=== PATIENT | female | born 1945 | race Caucasian/White ===

== ENCOUNTER 2025-01-20 09:48 | Outpatient (AMB) | payer MEDICARE, SELFPAY ==
--- NOTE | 2025-01-20 09:50 | MHC.PC.OV ---
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 Intake Note: patient here for new patient visit and med review Transition Program Manager Required: No Is last menstrual period known: No Post menopausal: No Patient : No Allergies No Known Allergies Allergy (Verified 01/20/25 09:56) Medication List - Last Reconciled 01/20/25 by Miguel Ángel Rivera MD apixaban (Eliquis) 5 mg PO BID atorvastatin (Lipitor) 20 mg PO DAILY bethanechol chloride 25 mg PO TID doxazosin (Cardura) 2 mg PO BEDTIME duloxetine 30 mg PO BID gabapentin 600 mg PO TID levetiracetam 750 mg PO BID sennosides (Natural Senna Laxative) 8.6 mg PO BID Tobacco use date assessed: 01/20/25 Fall risk assessment: No Falls in past year Last assessed Fall Risk: 01/20/25 Dental Screening Dental Screen Date: 01/20/25 Did you have a dental visit in the last 12 months?: No Did you have a dental problem in the last 6 months where you did not have access to dental care?: No Was dental information given to patient?: No HPI PRODUCT DESIGN MANAGER // Med Review HPI Details New Patient? ?? Prior PCP:? [facility] Dr Lopez Last office visit/CPE:?1 year Acute issue(s):? Leg swelling x a couple months ?? PMHx:? 03/2021 CVA & Seizure Dr Lucas [facility], Pulmonary Emboli Dr Marrero and uses QVAR. SurgHx:? None SocHx: Nonsmoker. EtOH None. No drugs HPI Comments History of Present Illness Details Documentation assistance for Miguel Ángel Rivera MD, was provided by Ham Muñoz,Makenzie Cardiac Monitor on 01/20/2025 at 10:24 AM EST. Brown, Dr. Rivera, have read, observed, and verified documentation. [facility] Medical History (Updated 01/20/25 @ 10:56 by Miguel Ángel Rivera MD) Epileptic seizures Stroke (cerebrum) High cholesterol High blood pressure Family History (Updated 01/20/25 @ 10:16 by Denice Sarkar MA) Mother FH: mental illness High blood pressure Dementia Father Diabetes Social History (Updated 01/20/25 @ 09:58 by Denice Sarkar MA) Housing: House Patient Tobacco Use Status: Never used Tobacco e-Cigarette/Vaping Use: Never Used Second Hand Smoke Exposure: No service: No Current occupational status: disabled Current occupational exposures/hazards: No Cognitive needs: Yes (wheel chair) Hearing needs: No Vision needs: No Questionnaire PHQ-9 Over the last 2 weeks, how often have you been bothered by any of the following problems? 1. Little interest or pleasure in doing things: not at all 2. Feeling down, depressed, or hopeless: not at all 3. Trouble falling or staying asleep, or sleeping too much: not at all 4. Feeling tired or having little energy: not at all 5. Poor appetite or overeating: not at all 6. Feeling bad about yourself - or that you are a failure or have let yourself or your family down: not at all 7. Trouble concentrating on things, such as reading the newspaper or watching television: not at all 8. Moving or speaking so slowly that other people could have noticed. Or the opposite - being so fidgety or restless that you have been moving around a lot more than usual: not at all 9. Thoughts that you would be better off or of hurting yourself in some way: not at all Total score: 0 Depression Screening Interpretation: Negative Depression Screening Done: Yes 47209 - PHQ-9 Billing: Yes Source: Developed by Drs. Ildefonso Vickers, Sandra Alas, Donato Waddell and colleagues, with an educational sis from [employer]. Thrive Questionnaire Date Thrive assessed: 01/20/25 I am a: Patient What is your living situation today?: I have a steady place to live Within the past 12 months, did the food you bought not last and you didn't have the money to get more?: Never true Within the past 12 months, did you worry whether your food would run out before you got money to buy more?: Never true Do you have trouble paying for medicines?: No Do you have trouble getting transportation to medical appointments?: No Do you have trouble paying your heating and electricity bill?: No Do you have trouble taking care of your child, family member or friend?: I choose not to answer this question Do you have trouble with day-to-day activities such as bathing, preparing meals, shopping, managing finances, etc.?: Yes Are you currently unemployed and looking for a job?: No Are you interested in more education?: No Please select the resources that you would like help with: None Currently or been in a relationship where the following occur: No concerns reported THRIVE Score: 0 AUDIT C Alcohol Use Questionnaire (AUDIT-C) 1. How often do you have a drink containing alcohol?: Never 3. How often do you have six or more drinks on one occasion?: Never Total Score: 0 Score Reviewed/Action Taken: Yes EDMOND-7 AMB Questionnaire EDMOND-7 Date EDMOND - 7 assessed: 01/20/25 Feeling nervous, anxious, or on edge: 0 = Not at all Not being able to stop or control worryin = Not at all Worrying too much about different things: 0 = Not at all Trouble relaxin = Not at all Being so restless that it is hard to sit still: 0 = Not at all Becoming easily annoyed or irritable: 0 = Not at all Feeling afraid as if something awful might happen: 0 = Not at all Total EDMOND-7 score (0-4 normal; 5-9 mild; 10-14 moderate; 15-21 severe): 0 Source: Developed by Drs. Ildefonso Vickers, Sandra Alas, Donato Waddell and colleagues, with an educational sis from [employer]. EDMOND-7 Assessment Billing EDMOND-7 Assessment Tool: EDMOND-7 Assessment 64106 Review of Systems Const Denies chills, Denies fatigue, Denies fever(s), Denies headache(s) and Denies weakness ENT Denies dizziness and Denies headache(s) Card Denies chest pain, Denies lightheadedness, Denies dyspnea and Denies other (Palpitations) Resp Denies cough, Denies dyspnea, Denies wheezing and Denies other ( shortness of breath) Musc Denies numbness and Denies tingling Neuro Denies dizziness, Denies headache(s), Denies numbness, Denies tingling, Denies paresthesias and Denies weakness Psych Denies anxiety and Denies depression Endo Denies fatigue Aller/Immun Denies wheezing Physical exam (Primary Care) Vital Signs: Last Vital Signs Temp 98 F 01/20/25 09:59 Pulse 82 01/20/25 09:59 Resp 16 01/20/25 09:59 BP 113/57 L 01/20/25 09:59 Pulse Ox 96 01/20/25 09:59 Oxygen Delivery Method Room Air 01/20/25 09:59 Tobacco/Smoking Status: Tobacco use Status Tobacco use date assessed 01/20/25 01/20/25 09:59 Patient Tobacco Use Status Never used Tobacco 01/20/25 09:59 e-Cigarette/Vaping Use Never Used 01/20/25 09:59 PHQ-9: PHQ-9 Score PHQ-9: Total score 0 01/20/25 10:25 Depression Screening Interpretation: Negative Thrive Assessment: Date of Thrive Assessment Date Thrive assessed 01/20/25 01/20/25 09:54 Currently or been in a relationship where the following occur: No concerns reported Const General: no acute distress and well developed Nutritional Appearance: well nourished Orientation/consciousness: patient oriented x3 HENMT Head: Yes normocephalic and Yes atraumatic Eyes General: appearance normal, both eyes and all related structures Pupils: Equal, round and reactive pupils present EOM: EOMs intact bilaterally Resp Effort & Inspection: normal respiratory effort Auscultation: clear to auscultation bilaterally Cardio Rate: regular rate Rhythm: regular rhythm Heart sounds: S1 normal heart sound present, S2 normal heart sound present, no gallops, no murmurs and no rubs Neuro General: patient oriented x3 and gait normal Cranial nerves: Yes Equal, round and reactive pupils present Extrem Other: 3+ lower extremity edema, bilateral Psych Affect: normal affect Coding Level of Care Code New Pt Level 4 (64730) Diagnoses Swelling of lower extremity M79.89 Venous insufficiency I87.2 History of pulmonary embolism Z86.711 History of CVA (cerebrovascular accident) Z86.73 Lower extremity weakness R29.898 Laboratory exam ordered as part of routine general medical examination Z00.00 Additional Codes EDMOND-7 Assessment Billing - EDMOND-7 Assessment Tool: EDMOND-7 Assessment 80488 ([id number]) PHQ-9 - 39770 - PHQ-9 Billing: Yes ([id number]) Assessment & Plan Assessment & Plan (1) Swelling of lower extremity: Code(s): M79.89 - Other specified soft tissue disorders Category: Medical Plan: Lower extremity edema bilaterally. Worse towards evening and better in mornings. No orthopnea Likely venous insufficiency Elevate legs Avoid salt/sodium Use compression stocking Will give her a script for furosemide (2) Venous insufficiency: Code(s): I87.2 - Venous insufficiency (chronic) (peripheral) Category: Medical Plan: As above, (3) History of pulmonary embolism: Code(s): Z86.711 - Personal history of pulmonary embolism Category: Medical Plan: This occurred after her stroke Unclear what underlying cause was but she is now on Eliquis Requesting prior records. Continue Eliquis (4) History of CVA (cerebrovascular accident): Code(s): Z86.73 - Personal history of transient ischemic attack (TIA), and cerebral infarction without residual deficits Category: Medical Plan: History of CVA. Unclear what underlying cause was. Requesting records from her neurologist, Dr. Lucas Continue Eliquis and atorvastatin Continue levetiracetam Follow-up with Neurology as recommended (5) Lower extremity weakness: Code(s): R29.898 - Other symptoms and signs involving the musculoskeletal system Category: Medical Plan: Patient has lower extremity weakness bilaterally though she had a stroke with left-sided weakness. Appears to have deconditioning Start physical therapy (6) Laboratory exam ordered as part of routine general medical examination: Code(s): Z00.00 - Encounter for general adult medical examination without abnormal findings Category: Medical Plan: Check labs Orders: Orders Microalbumin, Random (w Creat) Today I10 - Essential (primary) hypertension Vitamin B12 and Folate Today E53.8 - Deficiency of other specified B group vitamins Comprehensive [place]. Panel Fast Today Z00.00 - Encounter for general adult medical examination without abnormal findings Complete Blood Count Auto Diff Today Z00.00 - Encounter for general adult medical examination without abnormal findings Lipid Panel Today Z00.00 - Encounter for general adult medical examination without abnormal findings TSH reflex Free T4 Today Z00.00 - Encounter for general adult medical examination without abnormal findings UA CC w/rflx Micro + Cult Today Z00.00 - Encounter for general adult medical examination without abnormal findings Vitamin D 25-OH Total Today E55.9 - Vitamin D deficiency, unspecified Referrals [facility] Referral R29.898 - Other symptoms and signs involving the musculoskeletal system, Z86.73 - Personal history of transient ischemic attack (TIA), and cerebral infarction without residual deficits Medications: New compr.stocking,knee,long,large 30-40mmHg. Daily As directed, 90 days 12 ea 3RF I87.2 - Venous insufficiency (chronic) (peripheral) furosemide 10 mg (1/2 x 20 mg) PO QAM 15 tabs 3RF 30 days
[2025-01-20 09:59] VITALS: BP 113/57; PULSE 82; RESP 16; TEMP 36.6; O2SAT 96
--- OUTSIDE RECORDS SUMMARY | 2025-01-20 10:23 | XMS_ITS | Clinical Summary ---
Author Organization [facility] Address [address] [place] [address] Care Team Providers Care Vacuum Spindle Sander Name Role Phone Unavailable Primary Care Provider Unavailabl e Allergies No known active allergies Medications Medication Sig Dispensed Refills Start Date End Date Status Eliquis 5 MG TABS tablet Take 5 mg by mouth 2 (two) times a day. 0 08/13/2021 Active atorvastatin (LIPITOR) tablet 20 mg Take 20 mg by mouth. 0 07/17/2021 Active baclofen (LIORESAL) 10 MG tablet Take 10 mg by mouth 3 (three) times a day. 0 08/11/2021 Active bethanechol (URECHOLINE) 25 MG tablet Take 25 mg by mouth 3 (three) times a day. 0 08/14/2021 Active Diclofenac Sodium 1 % GEL APPLY 4 GRAMS TWICE DAILY NEEDED FOR PAIN 0 08/11/2021 Active docusate sodium (COLACE) 100 MG capsule Take 100 mg by mouth 2 (two) times a day. 0 08/07/2021 Active gabapentin (NEURONTIN) 600 MG tablet Take 600 mg by mouth 3 (three) times a day. 0 08/18/2021 Active Stool Softener Plus Laxative 8.6-50 MG Take 1 tablet by mouth 2 (two) times a day. 0 08/08/2021 Active Active Problems Problem Noted Date Diagnosed Date Acute pulmonary embolism 09/04/2021 Overview: CT angio head, performed on 04/04, for hyperacute stroke, showed multiple bilateral pulmonary emboli, with large emboli extending from right main, and left lower Cerebrovascular accident (CV A) due to thrombosis of right anterior cerebral artery 09/04/2021 Essential hypertension 09/04/2021 Encephalomalacia 09/04/2021 Seizure 09/04/2021 Family History Medical History Relation Name Comments Diabetes Father Cancer Paternal Aunt Cancer Sister Relation Name Status Comments Father Paternal Aunt Sister Social History Tobacco Use Types Packs/Day Years Used Date Smoking Tobacco: Never Smokeless Tobacco: Never Alcohol Use Standard Drinks/Week Comments Never 0 (1 standard drink = 0.6 oz pur e alcohol) Sex and Gender Information Value Date Recorded Sex Assigned at Not on file Gender Identity Not on file Sexual Orientation Not on file Job Start Date Occupation Industry Not on file Not on file Not on file Last Filed Vital Signs Vital Sign Reading Time Taken Comments Blood Pressure 134/52 09/04/2021 11:48 AM EST Pulse 72 09/04/2021 11:48 AM EST Temperature 37.1 C (98.7 F) 09/04/2021 11:48 AM EST Respiratory Rate - - Oxygen Saturation 98% 09/04/2021 11:48 AM EST Inhaled Oxygen Concentration - - Weight 68 kg (150 lb) 09/04/2021 11:48 AM EST Height - - Body Mass Index - - Plan of Treatment Health Maintenance Due Date Last Done Comments Depression Screening 1956 Preventative Health Evaluation 1962 DTap / Tdap / Td (1 - Tdap) 1963 Shingrix-Zoster Vaccine (1 o f 2) 1994 Fall Risk Assessment 2009 Osteoporosis Screening (DEXA Scan) 2009 RSV Adult > 60+ Yrs or (1 - 1-dose 75+ series) 2019 Pneumococcal Vaccine (2 of 2 - PPSV23 or PCV20) 08/11/2022 08/11/2021 COVID-19 Vaccine (4 - 2023-2 5 season) 2024 07/05/2021, 10/01/2020, 09/04/2020 Influenza Vaccine (#1) 2025 Hepatitis B Vaccines Aged Out No long er eligible based on patient's age to complete this topic RSV Ped < 20 months Aged Out No longe r eligible based on patient's age to complete this topic
--- OUTSIDE RECORDS SUMMARY | 2025-01-20 10:23 | XMS_ITS | Clinical Summary ---
Author Organization [facility] [address] [facility] [address] Address [address] [place] [address] Phone Care Team Providers Care Firefighting Equipment Specialist Name Role Phone Miguel Ángel Rivera MD Primary Care Provider Medications gabapentin (NEURONTIN) 600 mg tablet TAKE 1/2 TABLET BY MOUTH IN THE MORNING, 1/2 TABLET BY MOUTH IN THE AFTERNOON, AND TAKE 2 TABLETS BEFORE AT BEDTIME 360 tablet 1 07/02/2024 Active bethanechol (URECHOLINE) 25 mg tablet Take 1 tablet (25 mg total) by mouth 3 (three) times a day. 270 tablet 2 07/29/2024 Active Eliquis 5 mg tablet TAKE ONE TABLET BY MOUTH TWICE A DAY 180 tablet 1 09/09/2024 Active doxazosin (CARDURA) 2 mg tablet TAKE ONE TABLET BY MOUTH DAILY AT BEDTIME 90 tablet 10/09/2024 Active atorvastatin (LIPITOR) 20 mg tablet Take 1 tablet (20 mg total) by mouth 1 (one) time each day. 90 tablet 10/09/2024 Active Senna Plus 8.6-50 mg per tablet TAKE ONE TABLET BY MOUTH TWICE A DAY 180 tablet 11/09/2024 Active DULoxetine (CYMBALTA) [address] capsule TAKE ONE CAPSULE BY MOUTH TWICE A DAY 180 capsule 11/26/2024 Active Immunizations Name Administration Dates Next Due [facility] SARS-CoV-2 COVID-19, mRNA, LNP-S, preservative free 10/01/2020,09/04/2020 Surgical History Surgery Date Site/Laterality Comments APPENDECTOMY PROCEDURE: [place] APPENDECTOMY Medical History Medical History Date Comments New onset seizure (CMS/HCC V 24, CMS/HCC V28) 09/15/2021 DX:New onset seizure (HCC); COMMENT: Admitted in hospital on 08/17/2021 with generalized tonic-clonic seizure for approx 20 seconds associated with fecal incontinence Hyperlipidemia DX:Hyperlipidemi a Essential hypertension DX:Essent ial hypertension Cerebrovascular disease DX:Cereb rovascular disease Family History Medical History Relation Name Comments Diabetes Father Alzheimer's disease Mother Relation Name Status Comments Father Other Mother Social History Tobacco Use Types Packs/Day Years Used Date Smoking Tobacco: Never Smokeless Tobacco: Never Alcohol Use Standard Drinks/Week Comments Never 0 (1 standard drink = 0.6 oz pur e alcohol) Comments Unknown Sex and Gender Information Value Date Recorded Sex Assigned at Female 06/30/2024 8:38 AM EST Legal Sex Female 2:37 PM EST Gender Identity Female 06/30/2024 8:38 AM EST Sexual Orientation Not on file Obstetrics History Last Filed Vital Signs Vital Sign Reading Time Taken Comments Blood Pressure 102/68 12/23/2023 10:25 AM EDT Pulse 82 12/23/2023 10:25 AM EDT Temperature - - Respiratory Rate - - Oxygen Saturation - - Inhaled Oxygen Concentration - - Weight 99.8 kg (220 lb) 12/23/2023 10:25 AM EDT Height 152.4 cm (5') 12/23/2023 10:25 AM EDT Body Mass Index 42.97 12/23/2023 10:25 AM EDT Plan of Treatment Health Maintenance Due Date Last Done Comments DTaP,Tdap,and Td Vaccines (1 - Tdap) 1963 Zoster Vaccines (1 of 2) 1994 RSV Immunization Adult Patients (1 - 1-dose 75+ series) 2019 Cholesterol Screening (Lipid Panel) 06/21/2022 Depression Screening 06/21/2022 Falls Risk Assessment 06/21/2022 Osteoporosis Screening (Bone Density Screening) 06/21/2022 Social Influencers of Health Screening 06/21/2022 COVID-19 Vaccine (4 - 2023-2 5 season) 2024 07/05/2021, 10/01/2020, 09/04/2020 Hypertension/CHF/CAD Annual BMP Blood Test 12/22/2024 12/23/2023 Influenza Vaccine (#1) 2025 04/11/2023 Pneumococcal Vaccine: 50+ Years Completed 04/11/2023, 08/11/2021 HIB Vaccines Aged Out No longer eligi ble based on patient's age to complete this topic HPV Vaccines Aged Out No longer eligi ble based on patient's age to complete this topic Hepatitis A Vaccines Aged Out No long er eligible based on patient's age to complete this topic Hepatitis B Vaccines Aged Out No long er eligible based on patient's age to complete this topic IPV Vaccines Aged Out No longer eligi ble based on patient's age to complete this topic MMR Vaccines Aged Out No longer eligi ble based on patient's age to complete this topic Meningococcal ACWY Vaccine Aged Out N o longer eligible based on patient's age to complete this topic Meningococcal B Vaccine Aged Out No l onger eligible based on patient's age to complete this topic RSV Immunization Patients Under 20 months Aged Out No longer eligible b ased on patient's age to complete this topic Varicella Vaccines Aged Out No longer eligible based on patient's age to complete this topic Care Teams Firefighting Equipment Specialist Relationship Specialty Start Date End Date Miguel Ángel Rivera MD [address] [place] [address] PCP - General Family Medicine 11/24/24
== END 2025-01-20 11:00 | disposition home or self-care (01) ==
LOC: HO.HMCFM 09:49
PROVIDERS: PCP Family Medicine; Visit Provider Family Medicine
DX: M79.89 Other specified soft tissue disorders (principal); I87.2 Venous insufficiency (chronic) (peripheral); Z86.711 Personal history of pulmonary embolism; Z86.73 Personal history of transient ischemic attack (TIA), and cerebral infarction without residual deficits; R29.898 Other symptoms and signs involving the musculoskeletal system; Z00.00 Encounter for general adult medical examination without abnormal findings

== ENCOUNTER → 2025-01-20 09:48 | Outpatient (BNVA) | payer MEDICARE, SELFPAY | PROVIDERS: PCP Family Medicine; Visit Provider Family Medicine | DX: Z76.89 Persons encountering health services in other specified circumstances (principal); M79.89 Other specified soft tissue disorders; I87.2 Venous insufficiency (chronic) (peripheral); R29.898 Other symptoms and signs involving the musculoskeletal system; Z86.73 Personal history of transient ischemic attack (TIA), and cerebral infarction without residual deficits; Z86.711 Personal history of pulmonary embolism; Z13.31 Encounter for screening for depression; Z13.30 Encounter for screening examination for mental health and behavioral disorders, unspecified | CPT/HCPCS: 96127; 99202 ==

== ENCOUNTER 2025-01-20 11:06 | Outpatient (REF) | payer MEDICARE, SELFPAY ==
[2025-01-20 14:38] LABS: MANUAL DIFF FLAG NO
[2025-01-20 14:39] LABS: Hematocrit 43.6 % (37.0-47.0); Hemoglobin 14.4 g/dl (12.0-16.0); Imm Gran Abs Auto 0.01 X10*3/uL (0.00-0.03); Imm Gran Pct Auto 0.2 % (0.0-0.4); Lymphocytes Absolute Auto 1.5 X10*3/uL (1.2-4.9); Mean Corpuscular HGB Conc 33.0 g/dl (31.0-35.0); Mean Corpuscular Hemoglobin 31.0 pg (27.0-33.0); Mean Corpuscular Volume 93.8 fL (80.0-98.0); NRBC Abs Auto 0.000 X10*3/uL (0.0-0.012); NRBC Pct Auto 0.0 /100WBC (0.0-0.2); Platelet Count 186 X10*3/uL (160-400); Red Blood Count 4.65 X10*6/uL (4.20-5.50); White Blood Count 4.7 X10*3/uL (4.8-10.8)
[2025-01-20 15:16] LABS: Alanine Aminotransferase 48 U/L (0-31); Albumin Level 4.3 g/dL (3.5-5.0); Alkaline Phosphatase 60 U/L (39-117); Anion Gap 13 (12-20); Aspartate Amino Transferase 48 U/L (5-31); Blood Urea Nitrogen 15 mg/dL (9-16); Calcium 9.1 mg/dL (8.4-10.2); Carbon Dioxide 26 mmol/L (22-29); Chloride 108 mmol/L (96-108); Cholesterol 165 mg/dL (<200); Estimated Glomerular Filt Rate > 60; HDL Cholesterol 52 mg/dL (>40); Potassium 3.9 mmol/L (3.3-5.1); Sodium 143 mmol/L (135-145); Total Protein 6.9 g/dL (6.5-8.0); Triglycerides 78 mg/dL (<150)
[2025-01-20 15:30] LABS: Folate 10.5 ng/mL (> or = 4.0); Vitamin B12 275 pg/mL (200-900)
== END 2025-01-20 11:07 | disposition home or self-care (01) ==
LOC: HO.WFDLDS 11:06
PROVIDERS: Visit Provider Family Medicine
DX: Z00.00 Encounter for general adult medical examination without abnormal findings (principal); E53.8 Deficiency of other specified B group vitamins; E55.9 Vitamin D deficiency, unspecified; I10 Essential (primary) hypertension
CPT/HCPCS: 36415; 80053; 80061; 82306; 82607; 82746; 84443; 85025

== ENCOUNTER 2025-04-26 11:58 | Outpatient (AMB) | payer MEDICARE, SELFPAY ==
--- OUTSIDE RECORDS SUMMARY | 2025-04-26 12:01 | XMS_ITS | Clinical Summary ---
Author Organization [facility] Address [address] [place] [address] Care Team Providers Care Quality Assurance Director Name Role Phone Unavailable Primary Care Provider [...] PPSV23 or PCV20) 08/11/2022 08/11/2021 COVID-19 Vaccine ( - 2024-2 6 season) 2025 07/05/2021, 10/01/2020, 09/04/2020 Influenza Vaccine (#1) 2025 Hepatitis B Vaccines Aged Out No long er eligible based on patient's age to complete this topic RSV Ped < 20 months Aged Out No longe r eligible based on patient's age to complete this topic
--- OUTSIDE RECORDS SUMMARY | 2025-04-26 12:01 | XMS_ITS | Clinical Summary ---
Author Organization [facility] [address] [facility] [address] Address [address] [place] [address] Phone Care Team Providers Care Video Tape Duplicator Name Role Phone Miguel Ángel Rivera MD [...] A DAY 180 capsule 11/26/2024 Active Immunizations Immunization Administration Dates Next Due [facility] SARS-CoV-2 COVID-19, mRNA, LNP-S, preservative free 10/01/2020,09/04/2020 Surgical History Surgery Date Site/Laterality Comments APPENDECTOMY PROCEDURE: [place] APPENDECTOMY Medical History Medical History Date Comments [...] series) 2019 Cholesterol Screening (Lipid Panel) 06/21/2022 Falls Risk Assessment 06/21/2022 Osteoporosis Screening (Bone Density Screening) 06/21/2022 Social Influencers of Health Screening 06/21/2022 Depression Screening 07/15/2024 Hypertension/CHF/CAD Annual BMP Blood Test 12/22/2024 12/23/2023 COVID-19 Vaccine (2024-2 6 season) 2025 07/05/2021, 10/01/2020, 09/04/2020 Influenza Vaccine (#1) 2025 04/11/2023 Pneumococcal Vaccine: [...] age to complete this topic Care Teams Video Tape Duplicator Relationship Specialty Start Date End Date Miguel Ángel Rivera MD PCP - General Family Medicine 11/24/24
--- NOTE | 2025-04-26 12:03 | A.OFFPC_ITS ---
Vital Signs 04/26/25 12:09 Height 5 ft 2 in BMI Reason not done Patient refused/unable BP 116/68 Blood Pressure Location Rt brachial Position Sitting Respiration 16 Pulse 85 Pulse Source Pulse Oximeter Temp 97.4 F Temp Source Temporal Artery Scan Pulse Oximetry (%) 94 Oxygen Delivery Method Room Air Intake Visit Reasons: CPE with f/u labs and health maint. 30 mins Intake Note: Saida presents in the office today for her annual physical and a follow up to her labs. Allergies No Known Allergies Allergy (Verified 04/26/25 12:06) Medication List - Last Reconciled 04/26/25 by Miguel Ángel Rivera MD albuterol sulfate 90 mcg/actuation (Ventolin HFA) 2 puffs inhalation Q6H PRN apixaban (Eliquis) 5 mg PO BID 90 days atorvastatin (Lipitor) 20 mg PO DAILY 90 days beclomethasone dipropionate 40 mcg/actuation (Qvar RediHaler) 2 inhalations inhalation BID bethanechol chloride 25 mg PO TID 90 days cholecalciferol (vitamin D3) 50 mcg PO DAILY 30 days compr.stocking,knee,long,large 30-40mmHg. Daily As directed, 90 days doxazosin (Cardura) 2 mg PO BEDTIME 90 days duloxetine 30 mg PO BID 90 days furosemide 10 mg (1/2 x 20 mg) PO QAM 30 days gabapentin 600 mg PO TID 90 days levetiracetam 750 mg PO BID 90 days sennosides (Natural Senna Laxative) 8.6 mg PO BID 90 days Tobacco use date assessed: 04/26/25 Dental Screening Dental Screen Date: 04/26/25 Did you have a dental visit in the last 12 months?: No Did you have a dental problem in the last 6 months where you did not have access to dental care?: No Was dental information given to patient?: Patient declined HPI CPE with f/u labs and health maint. 30 mins HPI Details 79 y/o female presents for an extended e xam with f/u labs and health maint. Labs drawn 01/20/25. Reviewed labs with pt. Elevated liver enzymes - AST 48, ALT 48. Triglycerides 78. TC 165. LDL 98. HDL 52. She is on artovastatin 20mg. Vitamin D low at 9.7 ng/mL. Fasting glucose of 106. A1c today 6.2%. Pt notes ongoing LE swelling. Continues to take her furosemide. BP today 116/68, 85p. They note some objective, decreased hearing. 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 [facility] Medical History (Updated 04/26/25 @ 13:36 by Ham Muñoz) Epileptic seizures Stroke (cerebrum) High cholesterol High blood pressure Family History Mother FH: mental illness High blood pressure Dementia Father Diabetes Social History (Updated 04/26/25 @ 12:09 by Jacquie Gordon CMA) Housing: House Alcohol intake: never Patient Tobacco Use Status: Never used Tobacco e-Cigarette/Vaping Use: Never Used Second Hand Smoke Exposure: No service: No Current occupational status: disabled Current occupational exposures/hazards: No Cognitive needs: Yes (wheel chair) Hearing needs: No Vision needs: No Questionnaire Thrive Questionnaire Date Thrive assessed: 01/15/25 I am a: Patient What is your living situation today?: I have a steady place to live Within the past 12 months, did the food you bought not last and you didn't have the money to get more?: Never true Within the past 12 months, did you worry whether your food would run out before you got money to buy more?: Never true Do you have trouble paying for medicines?: No Do you have trouble getting transportation to medical appointments?: No Do you have trouble paying your heating and electricity bill?: No Do you have trouble taking care of your child, family member or friend?: I choose not to answer this question Do you have trouble with day-to-day activities such as bathing, preparing meals, shopping, managing finances, etc.?: Yes Are you currently unemployed and looking for a job?: No Are you interested in more education?: No Please select the resources that you would like help with: None Currently or been in a relationship where the following occur: No concerns reported THRIVE Score: 0 AUDIT C Alcohol Use Questionnaire (AUDIT-C) 3. How often do you have six or more drinks on one occasion?: Never Total Score: 0 EDMOND-7 AMB Questionnaire EDMOND-7 Date EDMOND - 7 assessed: 01/20/25 Source: Developed by Drs. Ildefonso LSandra Hardy, Donato Waddell and colleagues, with an educational sis from [employer]. Review of Systems Const Denies chills, Denies fatigue, Denies fever(s), Denies headache(s) and Denies weakness Eyes Denies change in vision ENT Denies dizziness, Denies headache(s), Denies hearing loss, Denies nasal congestion, Denies sinus pain, Denies sinus pressure and Denies sore throat Card Denies chest pain, Denies lightheadedness, Denies dyspnea and Denies other (palpitations) Resp Denies cough, Denies dyspnea and Denies wheezing GI Denies abdominal pain, Denies melena, Denies hematochezia, Denies change in bowel habits, Denies dyspepsia and Denies nausea Denies hematuria and Denies dysuria Musc Denies abnormal gait, Denies myalgias, Denies arthralgias, Denies numbness and Denies tingling Skin/Breast Denies rash, Denies unusual bruising and Denies wounds Neuro Denies abnormal gait, Denies dizziness, Denies headache(s), Denies memory loss, Denies numbness, Denies Sensory deficit (Neuro), Denies tingling and Denies weakness Psych Denies anxiety, Denies depression and Denies memory loss Endo Denies cold intolerance, Denies fatigue, Denies heat intolerance, Denies polydipsia and Denies polyuria Clarence/Lymph Denies easy bleeding and Denies easy bruising Aller/Immun Denies wheezing Physical exam (Primary Care) Vital Signs: Last Vital Signs Temp 97.4 F 04/26/25 12:09 Pulse 85 04/26/25 12:09 Resp 16 04/26/25 12:09 BP 116/68 04/26/25 12:09 Pulse Ox 94 04/26/25 12:09 Oxygen Delivery Method Room Air 04/26/25 12:09 Tobacco/Smoking Status: Tobacco use Status Tobacco use date assessed 04/26/25 04/26/25 12:13 Patient Tobacco Use Status Never used Tobacco 04/26/25 12:09 e-Cigarette/Vaping Use Never Used 04/26/25 12:09 Thrive Assessment: Date of Thrive Assessment Date Thrive assessed 01/15/25 04/26/25 12:04 Currently or been in a relationship where the following occur: No concerns reported Const General: no acute distress, well developed, alert and awake Nutritional Appearance: well nourished Orientation/consciousness: patient oriented x3 [facility] Head: Yes normocephalic and Yes atraumatic Ears: hearing grossly normal bilaterally and TM's normal bilaterally General nose exam: Normal external nose present and Normal nares present Mouth: Normal oral and palatal mucosa present and moist mucous membranes Teeth and gingiva: dentition normal Throat: Yes posterior oropharynx normal Eyes General: appearance normal, both eyes and all related structures Pupils: Equal, round and reactive pupils present and Pupil accommodation reflex normal EOM: EOMs intact bilaterally Neck Neck: Yes normal visual inspection, Yes no lymphadenopathy and Yes trachea midline Thyroid: Thyroid normal Carotids: no bruits Lymphatic: no lymphadenopathy noted Chest Chest palpation & inspection: normal inspection of the chest Resp Other: Dry crackles Effort & Inspection: normal respiratory effort Auscultation: clear to auscultation bilaterally Cardio Rate: regular rate Rhythm: regular rhythm Heart sounds: S1 normal heart sound present, S2 normal heart sound present, no gallops, no murmurs and no rubs Bruits: no abdominal aortic bruits and no carotid bruits GI Palpation (GI): No Abdominal aortic bruit present, Soft to palpation, nontender, No hepatosplenomegaly present and No Rebound tenderness present Auscultation: normal bowel sounds General: Yes no CVA tenderness Back/Spine/Pelvis Back: no CVA tenderness Cervical Spine: cervical ROM normal and No Cervical spine tenderness Thoracic/Lumbar Spine: thoraco-lumbar ROM normal, No pain with thoraco-lumbar ROM, No thoracic spinal tenderness and No lumbar spinal tenderness Skin Lesions: no lesions Rashes: no rashes Trauma: no lacerations or abrasions Wounds: no wounds Nails: normal Neuro General: patient oriented x3 and No gait normal Cranial nerves: Yes Equal, round and reactive pupils present Cognition (Neuro): normal cognition Gait exam (Neuro): Normal gait present Motor exam (neuro): 5/5 motor strength present throughout Sensory Exam: No Sensory deficit (Neuro) Deep tendon reflexes (DTR's): Right patellar reflex intensity grade: 2+ and Left patellar reflex intensity grade: 2+ Extrem General: Yes normal to inspection and No edema Psych Appearance: grossly normal Affect: normal affect Attitude: cooperative Thought process: Normal thought process present Results AMB Hemoglobin A1c AMB Hemoglobin A1c 6.2 % Last Edit by Jacquie Gordon CMA on 04/26/25 13:18 Results Reviewed Results Reviewed: Laboratory Last Values Hgb A1c (Clinic) 6.2 % (4.0-6.0) H 04/26/25 13:11 Coding Level of Care Code Est Pt Level 4 (79269) Diagnoses Decreased hearing H91.90 Cellulitis of skin L03.90 Pre-diabetes R73.03 High blood pressure I10 Left-sided weakness R53.1 Hyperlipidemia E78.5 Elevated liver enzymes R74.8 History of CVA (cerebrovascular accident) Z86.73 Screening for osteoporosis Z13.820 Vitamin D deficiency E55.9 Immunization counseling Z71.85 Adult general medical exam Z00.00 Assessment & Plan Assessment & Plan (1) Decreased hearing: Code(s): H91.90 - Unspecified hearing loss, unspecified ear Category: Medical Plan: Decreased hearing bilaterally Referred to audiology for evaluation (2) Cellulitis of skin: Code(s): L03.90 - Cellulitis, unspecified Category: Medical Plan: Right lower extremity cellulitis with poorly healing wound Will give her a script for cephalexin Continue elevating leg Control blood sugars-see below Call or return to office if not improving (3) Pre-diabetes: Code(s): R73.03 - Prediabetes Category: Medical Plan: New diagnosis of pre diabetes-A1c 6.2% Advised diet low in sugars and starches Advised weight loss (4) High blood pressure: Code(s): I10 - Essential (primary) hypertension Category: Medical Plan: Blood pressure today is well controlled (5) Left-sided weakness: Code(s): R53.1 - Weakness Category: Medical Plan: History of CVA with left-sided weakness Had ordered [facility] for physical therapy and internal message shows that they intended to reach out to her but patient says no one has called. Gave her the phone number for [facility] Sending a message to the office to reach out to [facility] to help get her scheduled. (6) Hyperlipidemia: Code(s): E78.5 - Hyperlipidemia, unspecified Category: Medical Plan: She is on atorvastatin and LDL cholesterol is well controlled Goal is less than 70 for LDL Her other lipids are well controlled as well. Continue atorvastatin (7) Elevated liver enzymes: Code(s): R74.8 - Abnormal levels of other serum enzymes Category: Medical Plan: Mildly elevated liver enzymes Encouraged good hydration and moderation with Tylenol Does not drink Encouraged weight loss Will recheck prior to next visit If still elevated or higher will check ultrasound (8) History of CVA (cerebrovascular accident): Code(s): Z86.73 - Personal history of transient ischemic attack (TIA), and cerebral infarction without residual deficits Category: Medical Plan: Stable Continue current medication regimen [facility] for physical therapy as above (9) Screening for osteoporosis: Code(s): Z13.820 - Encounter for screening for osteoporosis Category: Medical Plan: Significantly low vitamin-D level and no screening for osteoporosis in the past Bone density is ordered Sent a script for vitamin D Will recheck vitamin-D level at her next visit. (10) Vitamin D deficiency: Code(s): E55.9 - Vitamin D deficiency, unspecified Category: Medical Plan: As above (11) Immunization counseling: Code(s): Z71.85 - Encounter for immunization safety counseling Category: Medical Plan: Recommended COVID flu and RSV immunizations (12) Adult general medical exam: Code(s): Z00.00 - Encounter for general adult medical examination without abnormal findings Category: Medical Plan: 79-year-old female presents for an extended exam Stable Orders: Orders Hemoglobin A1c Today R73.01 - Impaired fasting glucose, R73.03 - Prediabetes AMB Hemoglobin A1c Today R73.01 - Impaired fasting glucose XR DEXA axial skeleton Today M81.0 - Age-related osteoporosis without current pathological fracture Vitamin D 25-OH Total Today E55.9 - Vitamin D deficiency, unspecified Referrals Audiology Referral H91.90 - Unspecified hearing loss, unspecified ear Medications: New cholecalciferol (vitamin D3) 50 mcg PO DAILY 30 caps 6RF 30 days E55.9 - Vitamin D deficiency, unspecified
[2025-04-26 12:09] VITALS: BP 116/68; PULSE 85; RESP 16; TEMP 36.3; O2SAT 94
== END 2025-04-26 13:36 | disposition home or self-care (01) ==
LOC: HO.HMCFM 11:59
PROVIDERS: PCP Family Medicine; Visit Provider Family Medicine
DX: H91.90 Unspecified hearing loss, unspecified ear (principal); L03.90 Cellulitis, unspecified; R73.03 Prediabetes; I10 Essential (primary) hypertension; R53.1 Weakness; E78.5 Hyperlipidemia, unspecified; R74.8 Abnormal levels of other serum enzymes; Z86.73 Personal history of transient ischemic attack (TIA), and cerebral infarction without residual deficits; Z13.820 Encounter for screening for osteoporosis; E55.9 Vitamin D deficiency, unspecified; Z71.85 Encounter for immunization safety counseling; Z00.00 Encounter for general adult medical examination without abnormal findings; R73.01 Impaired fasting glucose

== ENCOUNTER → 2025-04-26 11:58 | Outpatient (BNVA) | payer MEDICARE, SELFPAY | PROVIDERS: PCP Family Medicine; Visit Provider Family Medicine | DX: Z00.00 Encounter for general adult medical examination without abnormal findings (principal); H91.93 Unspecified hearing loss, bilateral; L03.115 Cellulitis of right lower limb; R73.03 Prediabetes; I10 Essential (primary) hypertension; R53.1 Weakness; I69.354 Hemiplegia and hemiparesis following cerebral infarction affecting left non-dominant side; E78.5 Hyperlipidemia, unspecified; R74.8 Abnormal levels of other serum enzymes; E55.9 Vitamin D deficiency, unspecified; Z79.899 Other long term (current) drug therapy; Z71.85 Encounter for immunization safety counseling | CPT/HCPCS: 83036; 99212 ==